=== PATIENT | male | born 1965 | race Asian ===

== ENCOUNTER → 2020-09-24 08:22 | Outpatient (BNVA) | payer OTHER, SELFPAY | PROVIDERS: PCP Internal Medicine; Visit Provider Anesthesiology | DX: M47.816 Spondylosis without myelopathy or radiculopathy, lumbar region (principal); M47.817 Spondylosis without myelopathy or radiculopathy, lumbosacral region; M54.5 Low back pain | CPT/HCPCS: 99202 ==

== ENCOUNTER 2020-11-02 08:00 | Outpatient (RCR) | payer OTHER, SELFPAY ==
--- NOTE | 2020-10-03 11:00 | MHC.PT.EP ---
[facility] [place] [facility] [place] Office [place] Office [address] Samir Mcfarland [address] [phone] F: [phone] F: [phone] F: [phone] F: [phone] Physical Therapy Plan of Care Date of Evaluation: 10/03/20 Date of Surgery: none Diagnosis: low back pain Assessment: Patient is a 55 year old R handed male who presents with s/s consistent with low back pain. He is no longer working, as he is retired. However, he does appreciate staying active by walking and hiking with his which has been limited due to current condition. Patient past medical history includes knee and wrist surgery. Current impairments include pain, ROM, activity tolerance and functional mobility. Functional limitations include decreased ability to walk, stand, run, negotiate stairs, and perform weight bearing activities.. Patient is motivated with good rehab potential. Skilled PT will address impairments and functional limitations in order to achieve goals. Frequency and Duration: The patient will be seen 2x/week for 4 weeks Short Term Goals: I with HEP - 2 weeks Centralized s/s - 2 weeks Able to walk 20 minutes - 2 weeks Clay Burner Goals: Able to walk > 40 minutes with no increased s/s - 4 weeks Normal b/l tissue tension and segmental mobility - 4 weeks Oswestry 14% or less - 4 weeks Treatment Plan: Modalities to reduce pain, spasms and effusion. Manual therapy to restore motion and function. Therapeutic exercise to improve strength and flexibility. Neuromuscular re-education for posture and balance. Therapeutic activities to return to functional activities of daily living. Electronically signed by: Lenin Rojas, PT Please sign and return to therapist. Thank you for your referral.
--- NOTE | 2020-12-17 13:32 | MHC.PT.DC ---
[facility] [place] Office [place] Office [place] Office [address] Samir Mcfarland [address] [phone] F: [phone] F: [phone] F: [phone] F: [phone] Physical Therapy Discharge Report Diagnosis: low back pain Date of Surgery: none Date of Evaluation: 10/03/20 Date of Discharge: 11/27/20 Treatments to Date: 9 Cancellations to Date: 0 No Shows to Date: 0 Discharge Status: Recommend MD Follow-up Discharge Summary: due to no sustained progress. we will hold at this time until follow up with MD next week. pt to call back. Electronically signed by: Lenin Rojas PT Please sign and return to therapist. Thank you for your referral.
== END 2020-12-17 13:58 | disposition home or self-care (01) ==
LOC: HO.PTCHIC 08:00
PROVIDERS: PCP Internal Medicine; Visit Provider Anesthesiology
DX: M54.5 Low back pain (principal)
CPT/HCPCS: 97012; 97014; 97110; 97112; 97140; 97161

== ENCOUNTER → 2020-11-05 12:20 | Outpatient (BNVA) | payer OTHER, SELFPAY | PROVIDERS: PCP Internal Medicine; Visit Provider Anesthesiology ==

== ENCOUNTER 2020-11-28 07:14 | Day surgery (SDC) | payer OTHER, SELFPAY ==
[2020-09-18 09:45] VITALS: BMI 21.9
--- NOTE | 2020-11-26 14:27 | P.CONAN_ITS ---
Documented by User: Marcella Rodriguez 11/26/20 14:28 HPI - Anesthesia Eval Consult details Narrative: 55yo M for Colonoscopy [facility] Active Problems Active Problems: All Active Problems (Updated 11/05/20 @ 12:31 by Shankar Vigil MD) Low back pain (Acute) Arthropathy of lumbosacral facet joint (Acute) Spondylosis of lumbar spine (Acute) Past Medical History Medical History Arthritis Arthropathy of lumbosacral facet joint Back pain Low back pain Sleep apnea Spondylosis of lumbar spine Surgical History Surgical History History of surgery on right wrist Hx of arthroscopic knee surgery Social History Social History Alcohol intake: current Alcohol intake frequency: a few times a month Smoking Status: Never smoker Advance Directives: No Advance Directives Information Provided: Yes Meds Allergies Allergy/AdvReac Type Severity Reaction Status Date / Time milk Allergy Intermediate Gastrointestinal Uncoded 09/18/20 09:50 Upset pollen Allergy Intermediate Itchy Eyes Uncoded 09/18/20 09:50 Home Medications Medication Instructions Recorded Confirmed Last Taken Type cholecalciferol (vitamin D3) 25 mcg PO DAILY 09/18/20 09/18/20 Unknown History [Vitamin D3] ibuprofen 400 mg PO Q6H PRN 09/18/20 09/18/20 Unknown History Exam Exam Date and Time: November 26, 2020 1427 Height,Weight and Vital Signs: Height 5 ft 7 in Weight 63.6 kg Assessment and Plan Assessment Anesthesia Assessment: Chart Reviewed Documented by User: Ariana Angulo 11/28/20 07:21 [facility] Past Medical History Medical History Arthritis Arthropathy of lumbosacral facet joint Back pain Low back pain Sleep apnea Spondylosis of lumbar spine Surgical History Surgical History History of surgery on right wrist Hx of arthroscopic knee surgery Social History Social History Alcohol intake: current Alcohol intake frequency: a few times a month Smoking Status: Never smoker Advance Directives: No Advance Directives Information Provided: Yes Meds Allergies Allergy/AdvReac Type Severity Reaction Status Date / Time milk Allergy Intermediate Gastrointestinal Uncoded 09/18/20 09:50 Upset pollen Allergy Intermediate Itchy Eyes Uncoded 09/18/20 09:50 Home Medications Medication Instructions Recorded Confirmed Last Taken Type cholecalciferol (vitamin D3) 25 mcg PO DAILY 09/18/20 09/18/20 Unknown History [Vitamin D3] ibuprofen 400 mg PO Q6H PRN 09/18/20 09/18/20 Unknown History Exam Airway Mallampati Class: II TM Dist: >3cm Neck ROM: Full Heart: RRR Lungs: CTA
[2020-11-28 07:38] VITALS: BP 138/89; PULSE 83; RESP 16; TEMP 36.2; O2SAT 99
[2020-11-28] MEDS: Lactated Ringers 1,000 ML 100 ML IVCONT (07:46)
--- NOTE | 2020-11-28 07:49 | MHC.SHP ---
Pre-Procedural Eval Section B Chief Complaint: SCREENING Relevant Family History (Specify if Yes): No Relevant Social History: None Present Medications: see Short Stay Collaborative assessment Medical History: Significant History (Arthritis Arthropathy of lumbosacral facet joint Back pain Low back pain Sleep apnea Spondylosis of lumbar spine) Allergies: Allergies Allergy/AdvReac Type Severity Reaction Status Date / Time milk Allergy Intermediate Gastrointestinal Uncoded 09/18/20 09:50 Upset pollen Allergy Intermediate Itchy Eyes Uncoded 09/18/20 09:50 Review of Systems Sugical H&P ROS: Negative: Constitution, Cardiovascular, Respiratory, Neurological, Psychiatric, Hem-Onc, Allergic/Immunologic, Gastrointestinal, Genitourinary, Musculoskeletal, Integumentary, Endocrine and Eyes/Ears/Nose/Throat Exam Surgical H&P Exam: Normal: HEENT, Normal: Heart, Normal: Lungs, Normal: Extremities, Normal: Abdomen, Normal: Skin and Normal: Neurological Plan Diagnosis/Plan: Unchanged I have reviewed the history and physical and performed a pertinent physical examination on my patient. No changes have occurred unless specified.
--- NOTE | 2020-11-28 09:03 | PM.OP ---
Brief Operative Note Date of Service: 11/28/20 Pre-op diagnosis: colon screen Post-op diagnosis: same Procedure: see op note Surgeon: Nam Boyer MD Anesthesia: MAC Estimated blood loss (mL): 0 Condition: stable Disposition: PACU
--- NOTE | 2020-11-28 09:04 | W.PM.OPN ---
Operative Note Operative Note Date of Service: 11/28/20 Narrative: Operative Information Procedure Description: Colonoscopy COLONOSCOPY Instrument: Olympus variable stiffness pediatric scope 190L Colonoscopy Monitoring: Vital signs and clinical assessment, continuous EKG monitoring, Pulse oximetry, Carbon Dioxide monitoring and blood pressure monitoring were done throughout the procedure. Colon withdrawal time was 8 minutes. Procedure: The patient was placed in the left lateral decubitis position and pre-procedure medications were administered. After a digital rectal examination of the ano-rectum, the video colonoscope was inserted into the rectum and advanced through the colon to the cecum/TI. The colonoscope was slowly withdrawn in a retrograde panoramic fashion and the colon mucosa was carefully examined including a retroflexed view of the rectum. Findings and interventions are described below. Procedure Difficulty:moderate Findings: Terminal Ileum-normal Cecum:normal Ascending Colon: normal Transverse Colon -normal Descending Colon:normal Sigmoid Colon: normal Rectum: Retroflexion with moderate sized internal hemorrhoids, grade II Anorectum - normal Colon preparation: Dennison Bowel Preparation Scale Right colon; 3 Transverse colon: 3 Left colon; 3 (0 = Unprepared colon segment with mucosa not seen due to solid stool that cannot be cleared. 1 = Portion of mucosa of the colon segment seen, but other areas of the colon segment not well seen due to staining, residual stool and/or opaque liquid. 2 = Minor amount of residual staining, small fragments of stool and/or opaque liquid, but mucosa of colon segment seen well. 3 = Entire mucosa of colon segment seen well with no residual staining, small fragments of stool or opaque liquid) Impression and Post Procedure Diagnosis: internal hemorrhoids Plan: High fiber diet leaflet Avoid straining at stool, epsom salts and sitz bath, anusol supps or cream prn Repeat Colonoscopy in 10 years or earlier if clinically indicated Above findings were reviewed with the patient and relevant handouts were provided if indicated.
[2020-11-28 09:08] VITALS: BP 88/61; PULSE 78; RESP 16; TEMP 36.4; O2SAT 98
[2020-11-28 09:23] VITALS: BP 119/85; PULSE 74; RESP 17; TEMP 36.6; O2SAT 100
--- NOTE | 2020-11-28 13:26 | HO.POSTANES ---
Post Anesthesia Evaluation Post Anesthesia Evaluation Vital Signs: Vital Signs Temp Pulse Resp BP Pulse Ox 11/28/20 09:23 97.8 F 74 17 119/85 100 11/28/20 09:08 97.6 F 78 16 88/61 L 98 11/28/20 07:38 97.2 F 83 16 138/89 99 Anesthesia: Monitored Mental Status: Awake Pain Control: Satisfactory Nausea/Vomiting: None Hydration: Adequate Anesthesia-Related Issues: No Anes. Related Issues
== END 2020-11-28 10:15 | disposition home or self-care (01) ==
PROVIDERS: PCP Internal Medicine; Visit Provider Internal Medicine Gastroenterology
PROC: 0DJD8ZZ Inspection of Lower Intestinal Tract, Via Natural or Artificial Opening Endoscopic (ICD-10-PCS; CPT 45378; principal; 2020-11-28 08:30)
DX: Z12.11 Encounter for screening for malignant neoplasm of colon (principal); K64.1 Second degree hemorrhoids; E55.9 Vitamin D deficiency, unspecified; Z79.899 Other long term (current) drug therapy
CPT/HCPCS: 45378

== ENCOUNTER 2021-01-08 06:11 | Outpatient (REF) | payer OTHER, SELFPAY ==
--- NOTE | ~2021-01-08 | FL_ITS ---
EXAMINATION: Intraoperative fluoroscopy CLINICAL INFORMATION: Spondylosis COMPARISON: None. TECHNIQUE: Intraoperative fluoroscopy was provided for use by Dr. Tirado. A total of 4 images were saved to PACS. A radiologist was not present during imaging. Today's dictation is only for administrative purposes to document intraoperative fluoroscopic usage. TOTAL FLUOROSCOPIC TIME: 0.6 minutes FL/FL guidance in treatment room FINDINGS~\^^ Intraoperative fluoroscopy provided for use by Dr. Tirado. Please see operative note for detailed findings.
== END 2021-01-08 06:12 | disposition home or self-care (01) ==
LOC: HO.RADIR 06:11
PROVIDERS: Visit Provider Anesthesiology
DX: M47.816 Spondylosis without myelopathy or radiculopathy, lumbar region (principal); M47.817 Spondylosis without myelopathy or radiculopathy, lumbosacral region
CPT/HCPCS: 64493; 64494; 64495; Q9967

== ENCOUNTER → 2021-01-14 10:33 | Outpatient (BNVA) | payer OTHER, SELFPAY | PROVIDERS: PCP Internal Medicine; Visit Provider Anesthesiology ==

== ENCOUNTER 2021-02-25 07:20 | Outpatient (REF) | payer MEDICAID, SELFPAY ==
--- NOTE | ~2021-02-25 | MR_ITS ---
EXAMINATION: MR LUMBAR SPINE WITHOUT CONTRAST CLINICAL INFORMATION: Lower back pain with right greater than left leg weakness and numbness. COMPARISON: Lumbar spine radiographs dated 06/25/2020. TECHNIQUE: MRI of the lumbar spine was obtained using routine sequences without contrast. FINDINGS: VERTEBRAL BODIES AND PARASPINAL STRUCTURES: The lumbar lordosis is maintained. Minimal grade 1 anterolisthesis of L4 on L5, unchanged when compared to the prior radiographs. No acute fracture or subluxation. No loss of vertebral body height. Loss of intervertebral disc height with disc desiccation at L5-S1 and to a lesser degree at L4-L5. Minimal Modic type II degenerative endplate changes at L5-S1. No additional abnormal marrow signal. The remaining intervertebral discs are well-hydrated. The visualized paraspinal soft tissues are unremarkable. CONUS MEDULLARIS AND CAUDA EQUINA: Normal, terminating at the level of L1. SPINAL LEVELS: T12-L1: No significant disc bulge. Bilateral facet arthropathy and thickening of the ligamentum flavum without central canal or neural foraminal stenosis. L1-L2: Shallow left extraforaminal disc protrusion. Bilateral facet arthropathy and thickening of the ligamentum flavum with mild left neural foraminal stenosis. L2-L3: Shallow broad-based disc bulge with a superimposed left extraforaminal disc protrusion which contacts the exiting left L2 nerve root. Bilateral facet arthropathy and thickening of ligamentum flavum with mild central canal stenosis which encroaches upon the traversing bilateral L3 nerve roots. Moderate left and mild right neural foraminal stenosis. L3-L4: Broad-based disc bulge with bilateral facet arthropathy and thickening of ligamentum flavum causing moderate central canal stenosis as well as moderate bilateral neural foraminal stenosis. L4-L5: Grade 1 anterolisthesis of L4 on L5 with a broad-based disc bulge and superimposed posterior central disc protrusion as well as severe bilateral facet arthropathy and thickening of ligamentum flavum. Findings cause severe central canal as well as [id number] right and moderate left neural foraminal stenosis. L5-S1: Broad-based disc bulge with posterior annular fissuring as well as a superimposed left paracentral disc protrusion. Prominent bilateral facet arthropathy and thickening of ligamentum flavum causing moderate central canal stenosis which contacts the traversing bilateral S1 nerve roots, left greater than right. [id number] bilateral neural foraminal stenosis. MR/MR lumbar spine wo con IMPRESSION: 1. Grade 1 anterolisthesis of L4 on L5 with a broad-based disc bulge and superimposed posterior central disc protrusion. Severe bilateral facet arthropathy and thickening of ligamentum flavum. Findings cause severe central canal as well as [id number] right and moderate left neural foraminal stenosis. 2. Broad-based disc bulge at L5-S1 with posterior annular fissuring and a superimposed left paracentral disc protrusion as well as prominent bilateral facet arthropathy and thickening of the ligamentum flavum. Findings cause moderate central canal stenosis which contacts the traversing bilateral S1 nerve roots, left greater than right as well as [id number] bilateral neural foraminal stenosis. 3. Shallow broad-based disc bulge at L2-L3 with a superimposed left extraforaminal disc protrusion contacting the exiting left L2 nerve root. Bilateral facet arthropathy and thickening of ligamentum flavum causing mild central canal stenosis which encroaches upon the traversing bilateral L3 nerve roots as well as moderate left and mild right neural foraminal stenosis. 4. Broad-based disc bulge and bilateral facet arthropathy at L3-L4 with thickening of ligamentum flavum causing moderate central canal and moderate bilateral neural foraminal stenosis. 5. Shallow left extraforaminal disc protrusion at L1-L2 with bilateral facet arthropathy and thickening of ligamentum flavum causing mild left neural foraminal stenosis.
== END 2021-02-25 07:21 | disposition home or self-care (01) ==
LOC: HO.MRI 07:20
PROVIDERS: Visit Provider Anesthesiology
DX: M47.816 Spondylosis without myelopathy or radiculopathy, lumbar region (principal); M51.36 Other intervertebral disc degeneration, lumbar region
CPT/HCPCS: 72148

== ENCOUNTER → 2021-03-06 10:27 | Outpatient (BNVA) | payer MEDICAID, SELFPAY | PROVIDERS: PCP Nurse Practitioner Family; Visit Provider Anesthesiology ==

== ENCOUNTER 2023-10-29 14:31 | Outpatient (AMB) | payer OTHER, SELFPAY ==
--- NOTE | 2023-10-29 14:34 | A.OFFVIS_ITS ---
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: No Allergies milk Allergy (Verified 03/06/21 10:27) Unknown pollen extracts Allergy (Verified 03/06/21 10:27) Unknown [facility] Medical History (Updated 10/29/23 @ 15:07 by WILBUR Velasco) Disc degeneration, lumbar Low back pain Arthropathy of lumbosacral facet joint Spondylosis of lumbar spine Arthritis Back pain Sleep apnea Surgical History History of surgery on right wrist Hx of arthroscopic knee surgery Social History Alcohol intake: current Alcohol intake frequency: a few times a month Assessment & Plan Assessment & Plan (1) Cervical myelopathy: Code(s): G95.9 - Disease of spinal cord, unspecified (2) Spondylosis of lumbar spine: Code(s): M47.816 - Spondylosis without myelopathy or radiculopathy, lumbar region Plan Mr. Santiago is here in follow-up today. This is a gentleman who underwent a C3-4 anterior cervical fusion by Dr. Martini in 2020 for myelopathy, as well as a bilateral L3-4 and L4-5 decompression done in 2020 as well. Since the surgeries in 2020 he has seen some degree of recovery. With respect to his neck, he did notice some increased strength in his hands but his hands are still numb. He still has some strength loss as well. An EMG done postoperatively did not reveal any carpal tunnel. He is more less been stable for the last 2 years with respect to this but he does have persistent symptoms. The main thing that brings him in today though is a recurrence of left-sided low back pain which will give him a feeling of fatigue down his left leg when he walks. Every morning he takes about a mi and half walk and as he starts to go along the back pain will ease off for a little bit and then over the course of the next half a mi or so he will experience fatigue in his leg that will make him after go and sit down. However, when he sits down, there will be a severe pain over the left side of his low back or SI joint region that is very uncomfortable and takes a number of attempts at repositioning to be able to sit without pain. The symptoms are consistently worse the more he walks. On exam, he is still demonstrating signs of myelopathy with hand weakness and diffuse hyperreflexia. He also has some subtle iliopsoas weakness as well. Distally is strength is full in the lower extremity. I went back and reviewed his old MRIs at [facility] in [place] as well as a postoperative MRI done on his cervical spine. He had severe stenosis in his lumbar spine with degenerative disc disease and congenitally narrowed spinal canal. I am wondering if maybe he has not developed stenosis at another level given his predisposition for this. I would like to get a lumbar MRI with and without katlyn 0 to evaluate this. With regard to his cervical spine, he did have some borderline stenosis lower down in the mid cervical regions that I think as a matter of being thorough we should evaluate just to make sure that his persistent hand numbness and weakness is not caused by a worsening of that. Therefore I will order cervical MRI. I will call him with the results. Total amount of time spent in this visit was 20 minutes in discussion of symptoms, previous cervical and lumbar MRI imaging results and subsequent plan of care Gonzalez Martini MD,PhD [facility] Orders: Orders MR cervical spine wo con Today G95.9 - Disease of spinal cord, unspecified MR lumbar spine wo/w con Today M47.816 - Spondylosis without myelopathy or radiculopathy, lumbar region Coding Level of Care Code Est Pt Level 3 (14683) Diagnoses Cervical myelopathy G95.9 Spondylosis of lumbar spine M47.816
== END 2023-10-29 15:09 | disposition home or self-care (01) ==
PROVIDERS: PCP Nurse Practitioner Family; Visit Provider Physician Assistant
DX: G95.9 Disease of spinal cord, unspecified (principal); M47.816 Spondylosis without myelopathy or radiculopathy, lumbar region
CPT/HCPCS: 99213

== ENCOUNTER → 2023-10-29 14:31 | Outpatient (BNVA) | payer OTHER, SELFPAY | PROVIDERS: PCP Nurse Practitioner Family; Visit Provider Physician Assistant | DX: G95.9 Disease of spinal cord, unspecified (principal); M47.816 Spondylosis without myelopathy or radiculopathy, lumbar region | CPT/HCPCS: 99212 ==

== ENCOUNTER 2024-04-12 09:52 | Outpatient (REF) | payer OTHER, SELFPAY ==
--- NOTE | ~2024-04-12 | MR_ITS ---
EXAMINATION: MR LUMBAR SPINE WITHOUT AND WITH CONTRAST CLINICAL INFORMATION: Lumbar spondylosis COMPARISON: MRI of lumbar spine on 02/25/2021 TECHNIQUE: MRI of the lumbar spine was obtained using routine sequences with and without contrast. Intravenous contrast: Gadavist 6.5 mL FINDINGS: The visualized lumbar vertebrae are intact. No focal bone lesion with abnormal signal can be seen. Evaluation of the intervertebral discs show: T12/L1: Intervertebral disc height is normal, with normal T2 signal. No focal disc herniation is seen. Bilateral T12/L1 neuroforamina are patent. Bilateral apophyseal joints are intact with normal alignment. L-1/L-2: Intervertebral disc height is normal, with normal T2 signal. No focal disc herniation is seen. Bilateral L1-L2 neuroforamina are patent. There is mild spinal stenosis stenosis due to impingement by hypertrophic ligamentum flavum. Bilateral apophyseal joints are intact with normal alignment. Bilateral apophyseal joints show loss of joint space, sclerosis, facet hypertrophy and osteophytosis. L2/L3: Intervertebral disc height is normal, with normal T2 signal. No focal disc herniation is seen. Bilateral L2-L3 neuroforamina are patent. There is moderate spinal stenosis due to impingement by hypertrophic ligamentum flavum. Bilateral apophyseal joints are intact with normal alignment. Bilateral apophyseal joints show joint effusion, sclerosis, facet hypertrophy and osteophytosis. L3/L4: Intervertebral disc height is normal, with normal T2 signal. No focal disc herniation is seen. Bilateral L3-L4 neuroforamina are patent. There is severe spinal stenosis due to impingement by hypertrophic ligamentum flavum. Bilateral apophyseal joints are intact with normal alignment. Bilateral apophyseal joints show loss of joint space, sclerosis, facet hypertrophy and osteophytosis. L4/L5: There is minimal anterior L4 on L5 displacement by 0.15 cm, with exposure of intervertebral disc. Bilateral L4 laminectomies, resection of spinous process is seen. Intervertebral disc height is normal, with moderate loss of T2 signal. Mild posterior and bilateral foraminal disc protrusion is seen. Bilateral L4-L5 neuroforamina are mildly stenosed. There is persistent marked spinal stenosis with additional impingement by hypertrophic ligamentum flavum. Bilateral apophyseal joints are intact with normal alignment. Bilateral apophyseal joints show loss of joint space, sclerosis, facet hypertrophy and osteophytosis. L5/S1: Intervertebral disc height is markedly decreased, with marked loss of T2 signal. Moderate asymmetric left posterior disc protrusion completely effacing the left lateral recess is seen. Bilateral L5-S1 neuroforamina are moderately stenosed. Bilateral apophyseal joints are intact with normal alignment. Conus medullaris is seen normally at L1 level. Post contrast images show no abnormal enhancing lumbar spine bone lesion. No intra spinal canalicular enhancing soft tissue mass lesion can be seen. MR/MR lumbar spine wo/w con IMPRESSION: 1. Unchanged minimal L4-L5 anterolisthesis, interval performance of bilateral L4 laminectomies, resection of spinous process, decrease in L4-L5 level marked spinal stenosis. 2. Unchanged advanced L5-S1 degenerative disc disease with moderate asymmetric left posterior disc protrusion completely effacing the left lateral recess. 3. Unchanged Moderate L4-L5 degenerative disc disease with mild posterior and bilateral foraminal disc protrusion. 4. Bilateral L4 laminectomies, resection of spinous process. 5. Unchanged Severe L3-L4 and moderate L2-L3 spinal stenosis due to impingement by hypertrophic ligamentum flavum. 6. Interval development of Mild L1-L2 spinal stenosis due to impingement by hypertrophic ligamentum flavum. 7. Unchanged Moderate bilateral L5-S1 neural foraminal stenosis. 8. Unchanged multilevel lumbar apophyseal joint osteoarthritis. 9. No enhancing lumbar spine bone lesion or intracanalicular soft tissue lesion could be seen.
--- NOTE | ~2024-04-12 | MR_ITS ---
EXAMINATION: MR CERVICAL SPINE WITHOUT CONTRAST CLINICAL INFORMATION: Neck pain radiating to the right shoulder, cervical radiculopathy COMPARISON: None available. TECHNIQUE: MRI of the cervical spine was obtained using routine sequences without contrast. FINDINGS: The visualized cervical vertebrae are intact with normal alignment. No focal bone lesion with abnormal signal can be seen. Evaluation of the intervertebral discs show: C2/C3: Intervertebral disc height is normal, with normal T2 signal. No focal disc herniation is seen. Bilateral C2-C3 neural foramina are patent. Bilateral apophyseal joints are intact with normal alignment. C3/C4: There is C3-C4 ACDF, fixation with integrated interbody fixation device. Bilateral C3-C4 neural foramina are moderately stenosed. There is moderate spinal stenosis with AP diameter of the spinal canal reduced to 8.5 mm. Bilateral apophyseal joints are intact with normal alignment. C4/C5: Intervertebral disc height is normal, with normal T2 signal. Prominent anterior bridging syndesmophytes are present. Mild posterior disc protrusion effacing the anterior thecal sac is seen. Bilateral C4-C5 neural foramina are markedly stenosed. There is marked spinal stenosis with AP diameter of the spinal canal reduced to 7.1 mm. Bilateral apophyseal joints are intact with normal alignment. C5/C6: Intervertebral disc height is normal, with normal T2 signal. Moderate asymmetric left posterior osteophyte disc complex protrusion markedly effacing the left lateral recess is seen. Bilateral C5-C6 neural foramina are severely stenosed. There is marked spinal stenosis with AP diameter of the spinal canal reduced to 7.4 mm. Bilateral apophyseal joints are intact with normal alignment. C6/C7: Intervertebral disc height is mildly decreased, with mild loss of T2 signal. Mild posterior disc protrusion is seen. Bilateral C6-C7 neural foramina are severely stenosed. There is moderate spinal stenosis with AP diameter of the spinal canal reduced to 8.1 mm. Bilateral apophyseal joints are intact with normal alignment. C7/T1: Intervertebral disc height is normal, with normal T2 signal. No focal disc herniation is seen. Bilateral C7-T1 neural foramina are patent. Bilateral apophyseal joints are intact with normal alignment. Cervical spinal cord is normal in position and signal. MR/MR cervical spine wo con IMPRESSION: 1. C3-C4 ACDF, fixation with integrated interbody fixation device. 2. Mild posterior C4-C5 to C6-C7 disc protrusions. 3. Moderate asymmetric left posterior C5-C6 osteophyte disc complex protrusion effacing the left lateral recess is present. 4. Moderate C3-C4, marked C4-C5, marked C5-C6, moderate C6-C7 spinal stenosis. 5. Severe bilateral C4-C5, bilateral C5-C6 and bilateral C6-C7 neural foraminal stenosis.
[2024-04-12] MEDS: gadobutroL 7.5 ML VIAL IVPUSH (12:22)
== END 2024-04-12 09:53 | disposition home or self-care (01) ==
LOC: HO.MRI 09:52
PROVIDERS: PCP Nurse Practitioner Adult Health; Visit Provider Physician Assistant
DX: M47.816 Spondylosis without myelopathy or radiculopathy, lumbar region (principal); G95.9 Disease of spinal cord, unspecified
CPT/HCPCS: 72141; 72158; A9585

== ENCOUNTER 2024-05-06 15:51 | Outpatient (REF) | payer OTHER, SELFPAY | END 2024-05-06 15:52 | disposition home or self-care (01) | LOC: HO.HOSX 15:51 | PROVIDERS: Visit Provider Physician Assistant | DX: Z13.89 Encounter for screening for other disorder (principal) ==

== ENCOUNTER 2024-05-09 08:40 | Outpatient (REF) | payer OTHER, SELFPAY ==
--- NOTE | ~2024-05-09 | XR_ITS ---
EXAMINATION: XR LUMBOSACRAL SPINE CLINICAL INFORMATION: Lumbar degenerative disease. COMPARISON: MRI lumbar spine dated 05/05/2024; lumbar spine radiographs dated 06/26/2020. TECHNIQUE: AP and lateral views of the lumbar spine were obtained. Lateral views were obtained in flexion, extension, and neutral positions. FINDINGS: There is bony demineralization. There is a mild lumbar levoscoliosis. Vertebral body heights are normal. At L2-3, there is a 3 mm anterolisthesis. At L3-4, there is a 4 mm anterolisthesis. At L4-5, there is a 4 mm anterolisthesis. At L5-S1, there is moderately severe disc space narrowing. No acute fracture or spondylolisthesis is seen. No instability is seen with flexion or extension. The posterior elements are intact. There is multi-level endplate and facet arthropathy. The paravertebral soft tissues are unremarkable. XR/XR lumbar spine 4V min IMPRESSION: 1. There is mild degenerative disc disease extending from L2-3 through L4-5, and marked degenerative disc disease is seen at L5-S1. 2. No acute fracture or spondylolisthesis is seen. There is no instability with flexion or extension. 3. There is multi-level endplate and facet arthropathy. 4. There is a mild lumbar levoscoliosis. Electronically signed by: Alex Lopez MD 06/02/2024 12:51 PM EDT
== END 2024-05-09 08:41 | disposition home or self-care (01) ==
LOC: HO.HOSX 08:40
PROVIDERS: Visit Provider Physician Assistant
DX: M51.36 Other intervertebral disc degeneration, lumbar region (principal)
CPT/HCPCS: 72110

== ENCOUNTER 2024-05-20 14:47 | Outpatient (AMB) | payer OTHER, SELFPAY ==
--- NOTE | 2024-05-20 15:41 | A.SPINEOV_ITS ---
Intake Visit Reasons: MRI & Xray follow up Intake Note: Mr. Varghese is here today to F/u on MRI and X-ray. [place] Required: No Allergies milk Allergy (Verified 05/20/24 15:44) Unknown pollen extracts Allergy (Verified 05/20/24 15:44) Unknown Assessment & Plan Assessment & Plan (1) Cervical myelopathy: Code(s): G95.9 - Disease of spinal cord, unspecified Category: Medical (2) Disc degeneration, lumbar: Code(s): M51.36 - Other intervertebral disc degeneration, lumbar region Category: Medical Plan Mr Varghese is here to follow up on his x-rays in his MRIs today. Just to recap, we did an anterior cervical fusion at C3-4 and him for myelopathic symptoms, he is improved significantly in terms of his arm and hand numbness as well as his hand strength. It was not a complete recovery so we did a cervical MRI just as a precaution. The MRI of the cervical spine done at [place] suggests that there is significant stenosis at C4-5. I disagree with this I think it is moderate and I can see CSF anteriorly on the sagittal cuts. I will review with Dr. Martini but at this time the patient does not have any significant worsening of any symptoms, it is just residual symptoms from his original presentation so I think this is something that he can for now avoid surgery. The 2nd issue we have been dealing with, is a back pain and intermittent left leg pain. The patient underwent an L3-4, L4-[address] Martini in 2020. But in the operative note it sounds like it was a traditional laminectomy with resection of the interspinous ligament and the lamina. He was doing okay for about 2 years but last year some time he started develop significant back pain on the left side which radiates across the lumbosacral junction to the right side. He does get intermittent pain going down his leg into his outer calf. Interestingly, in the mornings he will take about a 3 mi walk and 2 miles or so into the walk the pain seems to get better. However, by the time he finishes walking, the pain comes back and can intensify quite significantly. As the day goes on the pain only becomes worse. He takes meloxicam. He has been through physical therapy and injections in the past and these things have never done much. He has not done any recently. On my exam, he does still have some mild hand strength loss and some hyperreflexia. Lower extremity strength is full. His MRI of the lumbar spine done at [facility] shows that he has postsurgical changes at L4-5, and it looks as though partial L3-4 resection done as well. The contrast imaging appears to show that there is some residual stenosis at this level and there does appear to be a spondylolisthesis developing. I did upright flexion-extension x-rays and it looks like there maybe some slight anterior translation compared to the MRI but I do not see anything specific in terms of big motion abnormality just on the plain x-ray. I told the patient I would like to review his imaging with Dr. Martini and get back to him with the plan to see if he thinks this is something that would justify lumbar fusion or if he thinks this is something better treated with our pain management colleagues to start. Total amount of time spent in this visit was 20 minutes in discussion of symptoms, cervical and lumbar imaging results and subsequent plan of care Gonzalez Martini MD,PhD [facility] Coding Level of Care Code Est Pt Level 3 (36725) Diagnoses Cervical myelopathy G95.9 Disc degeneration, lumbar M51.36
== END 2024-05-20 16:08 | disposition home or self-care (01) ==
PROVIDERS: PCP Nurse Practitioner Adult Health; Visit Provider Physician Assistant
DX: G95.9 Disease of spinal cord, unspecified (principal); M51.36 Other intervertebral disc degeneration, lumbar region
CPT/HCPCS: 99213

== ENCOUNTER → 2024-05-20 14:47 | Outpatient (BNVA) | payer OTHER, SELFPAY | PROVIDERS: PCP Nurse Practitioner Adult Health; Visit Provider Physician Assistant | DX: G95.9 Disease of spinal cord, unspecified (principal); M51.36 Other intervertebral disc degeneration, lumbar region | CPT/HCPCS: 99212 ==